=== PATIENT | female | born 1970 | race Caucasian/White ===

== ENCOUNTER 2017-02-12 20:15 | Observation (INO) ==
[2017-02-12] MEDS ORDERED: NITROGLYCERIN 2% OINT 1 INCH/GM PACK TOP STA (20:58)
[2017-02-12 21:16] LABS: Basophils % 0.1 % (0.0-0.8); Hematocrit 42.9 VOL% (35.7-47.0); Hemoglobin 14.2 GM/DL (12.0-16.0); Immature Granulocytes % 0.5 %; Immature Granulocytes Absolute 0.04 #; Lymphocytes # 1.9 10*3/uL (1.4-4.0); Lymphocytes % 23.5 % (21.3-54.2); Mean Corpuscular HGB Conc 33.1 GM/DL (32-36); Mean Corpuscular Hemoglobin 27 PG (27-34); Mean Corpuscular Volume 82.5 FL (87-102); Mean Platelet Volume 10.1 FL (9.6-12.0); Monocytes # 0.5 10*3/uL (0.11-0.8); Monocytes % 6.2 % (1.7-12.7); Neutrophils # 5.8 10*3/uL (1.4-7.4); Neutrophils % 69.7 % (38.7-73.9); Platelet Count 253 T/CUMM (130-400); Red Cell Distribution Width 14.6 % (9.3-17.3); White Blood Count 8.3 T/CUMM (4-12)
[2017-02-12] MEDS ORDERED: ONDANSETRON 4 MG/2 ML VIAL IV STA (21:17)
[2017-02-12] MEDS ORDERED: KETOROLAC 30 MG/1 ML VIAL IV STA (21:17)
[2017-02-12] MEDS ORDERED: PANTOPRAZOLE 40 MG VIAL IV STA (21:17)
[2017-02-12] MEDS ORDERED: PANTOPRAZOLE 40 MG VIAL IV ONE (21:24)
[2017-02-12] MEDS ORDERED: NITROGLYCERIN 2% OINT 1 INCH/GM PACK TOP ONE (21:25)
[2017-02-12] MEDS ORDERED: KETOROLAC 30 MG/1 ML VIAL ONE (21:25)
[2017-02-12] MEDS ORDERED: ONDANSETRON 4 MG/2 ML VIAL ONE (21:25)
[2017-02-12 21:49] LABS: Alanine Aminotransferase 51 U/L (13-56); Albumin 3.8 G/DL (3.4-5.0); Alkaline Phosphatase 280 U/L (45-117); Aspartate Amino Transferase 29 U/L (0-37); Bilirubin,Total < 0.39 MG/DL (0.2-1.0); Blood Urea Nitrogen 18 MG/DL (7-18); Calcium 8.8 MG/DL (8.5-10.1); Glucose 106 MG/DL (74-106); Osmolality,Calculated 278.5 MOS/KG (273-304); Potassium 4.4 MMOL/L (3.5-5.1); Sodium 139 MMOL/L (136-145); Total Protein 7.3 G/DL (6.4-8.3)
[2017-02-12] MEDS ORDERED: KETOROLAC 30 MG/1 ML VIAL IV PRN (23:24)
[2017-02-12] MEDS ORDERED: SIMETHICONE CHEW 125 MG TABLET PO PRN (23:24)
[2017-02-12] MEDS ORDERED: guaiFENesin/DM ER 600-30 MG TABLET PO PRN (23:24)
[2017-02-12] MEDS ORDERED: NITROGLYCERIN SL 0.4 MG TABLET SL PRN (23:24)
[2017-02-12] MEDS ORDERED: ONDANSETRON 4 MG/2 ML VIAL IV PRN (23:24)
[2017-02-12] MEDS ORDERED: MORPHINE 2 MG/1 ML SYRINGE IV PRN (23:24)
[2017-02-13] MEDS: SODIUM CHLORIDE 0.9% 1,000 ML IV SCH ×2 (00:30→14:49)
[2017-02-13 02:07] LABS: Risk Ratio 3.82; VLDL CHOLESTEROL 32.2 MG/DL
[2017-02-13] MEDS ORDERED: PNEUMOCOCCAL VACCINE (13 VALENT) 0.5 ML SYRINGE IM ONE (03:16)
[2017-02-13] MEDS ORDERED: ISOSORBIDE MONONITRATE 30 MG TABLET PO SCH (09:00)
[2017-02-13] MEDS ORDERED: PANTOPRAZOLE 40 MG TABLET PO SCH (09:00)
[2017-02-13] MEDS ORDERED: FLUoxetine 20 MG CAPSULE PO SCH (09:00)
[2017-02-13] MEDS ORDERED: ENOXAPARIN 40 MG/0.4 ML SYRINGE SUBCUT SCH (09:00)
[2017-02-13] MEDS ORDERED: DOCUSATE SODIUM 100 MG CAPSULE PO SCH (09:00)
[2017-02-13] MEDS ORDERED: ASPIRIN EC 81 MG TABLET PO SCH (09:00)
[2017-02-13] MEDS ORDERED: MAGNESIUM OXIDE 400 MG TABLET PO SCH (09:00)
[2017-02-13] MEDS ORDERED: METOPROLOL TARTRATE 50 MG TABLET PO SCH (09:00)
[2017-02-13 09:53] LABS: Troponin I Only < 0.015 NG/ML (0.00-0.045)
[2017-02-13] MEDS: FERROUS SULFATE 325 MG TABLET PO SCH ×2 (15:59→16:03)
[2017-02-13 16:16] VITALS: BP 184/81
[2017-02-13] MEDS ORDERED: ATORVASTATIN 80 MG TABLET PO SCH (21:00)
[2017-02-13] MEDS ORDERED: ROSUVASTATIN 20 MG TABLET PO SCH (21:00)
== END 2017-02-13 19:20 | disposition home or self-care (01) ==
LOC: N.ED 20:15 → N.EDINP 20:15 → N.TELES 23:17
PROVIDERS: ADMIT Internal Medicine; ATTEND Internal Medicine

== ENCOUNTER 2020-02-21 13:24 | Observation (INO) ==
[2020-02-21] MEDS ORDERED: ENOXAPARIN 100 MG/ML SYRINGE SUBCUT STA (14:17)
[2020-02-21 14:31] LABS: Basophils % 0.2 % (0.0-0.8); Hematocrit 41.5 VOL% (35.7-47.0); Hemoglobin 13.5 GM/DL (12.0-16.0); Immature Granulocytes % 0.4 %; Immature Granulocytes Absolute 0.02 #; Lymphocytes # 1.1 10*3/uL (1.4-4.0); Lymphocytes % 23.7 % (21.3-54.2); Mean Corpuscular HGB Conc 32.5 GM/DL (32-36); Mean Corpuscular Volume 83.3 FL (87-102); Mean Platelet Volume 9.9 FL (9.6-12.0); Neutrophils % 69.7 % (38.7-73.9); Platelet Count 230 T/CUMM (130-400); Red Blood Count 4.98 MC/CUMM (3.8-5.5); Red Cell Distribution Width 13.7 % (9.3-17.3); White Blood Count 4.7 T/CUMM (4-12)
[2020-02-21 14:43] LABS: Albumin 3.6 G/DL (3.4-5.0); Bilirubin,Total 0.4 MG/DL (0.2-1.0); Calcium 9.2 MG/DL (8.5-10.1); Osmolality,Calculated 273.8 MOS/KG (273-304); Total Protein 7.7 G/DL (6.4-8.3)
[2020-02-21] MEDS ORDERED: DEXTROSE 50% 25 GM/50 ML VIAL IV PRN (15:20)
[2020-02-21] MEDS ORDERED: GLUCAGON 1 MG VIAL IM PRN (15:20)
[2020-02-21] MEDS ORDERED: ACETAMINOPHEN 325 MG TABLET PO PRN (15:20)
[2020-02-21] MEDS ORDERED: ONDANSETRON 4 MG/2 ML VIAL IV PRN (15:20)
[2020-02-21] MEDS ORDERED: NITROGLYCERIN SL 0.4 MG TABLET SL PRN (15:28)
[2020-02-21] MEDS ORDERED: HydrOXYzine PAMOATE 25 MG CAPSULE PO PRN (15:29)
[2020-02-21 15:44] LABS: Risk Ratio 4.71; VLDL CHOLESTEROL 22.8 MG/DL
[2020-02-21] MEDS: lisinopriL 10 MG TABLET PO SCH (17:00)
[2020-02-21] MEDS ORDERED: GABAPENTIN 300 MG CAPSULE PO SCH (21:00)
[2020-02-21] MEDS: TICAGRELOR 90 MG TABLET PO SCH (21:08)
[2020-02-21] MEDS: PANTOPRAZOLE 40 MG TABLET PO SCH (21:08)
[2020-02-21] MEDS: CITALOPRAM 40 MG TABLET PO SCH (21:09)
[2020-02-21] MEDS: METOPROLOL TARTRATE 50 MG TABLET PO SCH (21:09)
[2020-02-21] MEDS: FLUoxetine 20 MG CAPSULE PO SCH (21:09)
[2020-02-22] MEDS ORDERED: ENOXAPARIN 120 MG/0.8 ML SYRINGE SUBCUT SCH (02:00)
[2020-02-22] MEDS ORDERED: PANTOPRAZOLE 40 MG TABLET PO SCH (09:00)
[2020-02-22] MEDS ORDERED: ASPIRIN EC 81 MG TABLET PO SCH (09:00)
[2020-02-22] MEDS: CITALOPRAM 40 MG TABLET PO SCH (09:54)
[2020-02-22] MEDS: TICAGRELOR 90 MG TABLET PO SCH (09:55)
[2020-02-22] MEDS: lisinopriL 10 MG TABLET PO SCH (09:56)
[2020-02-22] MEDS: FLUoxetine 20 MG CAPSULE PO SCH (10:01)
[2020-02-22] MEDS: PANTOPRAZOLE 40 MG TABLET PO SCH (12:35)
[2020-02-22] MEDS: METOPROLOL TARTRATE 50 MG TABLET PO SCH (12:35)
[2020-02-22] MEDS ORDERED: REGADENOSON 0.4 MG/5 ML SYRINGE IV ONE (12:54)
[2020-02-22 13:21] VITALS: BP 120/63
[2020-02-22] MEDS ORDERED: ATORVASTATIN 80 MG TABLET PO SCH (21:00)
[2020-02-22] MEDS ORDERED: EZETIMIBE 10 MG TABLET PO SCH (21:00)
[2020-02-22] MEDS ORDERED: ROSUVASTATIN 20 MG TABLET PO SCH (21:00)
== END 2020-02-22 16:20 | disposition home or self-care (01) ==
LOC: EDUNIT# → N.EDINP 13:24 → N.ED 13:24 → N.EDINP 17:40 → N.TELES 17:47
PROVIDERS: ADMIT Family Medicine; ATTEND Family Medicine